=== PATIENT | male | born 1965 | race Caucasian/White ===

== ENCOUNTER 2020-08-05 09:51 | Outpatient (CLI) | payer OTHER | END 2020-08-05 09:52 | disposition home or self-care (01) | LOC: MADLAB 09:51 | PROVIDERS: ATTEND Physician Assistant | DX: S32.011A Stable burst fracture of first lumbar vertebra, initial encounter for closed fracture (principal) | CPT/HCPCS: 72100 ==

== ENCOUNTER 2020-09-04 09:02 | Outpatient (CLI) | payer OTHER | END 2020-09-04 09:03 | disposition home or self-care (01) | LOC: MADRAD 09:02 | PROVIDERS: ATTEND Neurological Surgery | DX: S32.011A Stable burst fracture of first lumbar vertebra, initial encounter for closed fracture (principal) | CPT/HCPCS: 72100 ==

== ENCOUNTER 2020-10-21 10:04 | Outpatient (CLI) | payer SELFPAY | END 2020-10-21 10:05 | disposition home or self-care (01) | LOC: MADRAD 10:04 | DX: S32.011D Stable burst fracture of first lumbar vertebra, subsequent encounter for fracture with routine healing (principal); M47.816 Spondylosis without myelopathy or radiculopathy, lumbar region | CPT/HCPCS: 72100 ==